=== PATIENT | male | born 1990 | race Hispanic/Latino ===

== ENCOUNTER 2017-12-25 10:05 | Emergency (ER) | payer BC ==
[2017-12-25 10:09] VITALS: BP 120/72; PULSE 96; RESP 16; TEMP 96.6; O2SAT 96; BMI 22.6
[2017-12-25] MEDS ORDERED: Tdap Vaccine 0.5 ml Vial (10-64 yrs) IM ONE ×2 (10:30→10:42)
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
[2017-12-25] MEDS ORDERED: Lidocaine 1% Inj (20ml) IJ ONE (11:44)
[2017-12-25] MEDS ORDERED: Hydrogen Peroxide 3% Soln (480ml) TP ONE (11:57)
[2017-12-25] MEDS ORDERED: Lidocaine 1% Inj (20ml) ONE (11:58)
== END 2017-12-25 13:33 | disposition home or self-care (01) ==
LOC: H.ER 10:05
DX: S00.83XA Contusion of other part of head, initial encounter (principal); S01.81XA Laceration without foreign body of other part of head, initial encounter; V19.88XA Pedal cyclist (driver) (passenger) injured in other specified transport accidents, initial encounter